=== PATIENT | male | born 1980 | race Caucasian/White ===

== ENCOUNTER 2021-12-14 06:15 | Emergency (ER) | payer BC, OTHER ==
[~2021-12-14] VITALS: Ht 185.4 cm; Wt 106.6 kg
--- NOTE | 2021-12-14 06:20 | NUR ---
DR. DIMAS AT [facility] ASSESSING PATIENT.
[2021-12-14 06:23] VITALS: BP_SYST 143
--- NOTE | 2021-12-14 06:23 | NUR ---
PATIENT RECIEVED 2.5INCH FULL THICKNESS LACERATION, BLEEDING CONTROLLED AT GYM EARLIER THIS AM.
--- NOTE | 2021-12-14 06:25 | NUR ---
PATIENT PLACED INTO BED 2
[2021-12-14] MEDS ORDERED: ACETAMINOPHEN 325 MG TABLET PO ONE (06:30)
[2021-12-14] MEDS ORDERED: LIDOCAINE 1%, 20 ML MDV 20 ML ONE (06:30)
--- NOTE | 2021-12-14 06:35 | NUR ---
DR. DIMAS TO BEDSIDE TO SUTURE WOUND.
--- NOTE | 2021-12-14 06:40 | NUR ---
PATIENT TAKEN TO CT SCAN WITH STICK ROLLER.
--- NOTE | 2021-12-14 06:48 | NUR ---
PATIENT BACK FROM CT SCAN AND AMBULATING TO RESTROOM WITHOUT DIFFICULTY.
--- NOTE | 2021-12-14 07:15 | NUR ---
REPORT GIVEN TO BRIAN LYNN
--- NOTE | 2021-12-14 07:40 | NUR ---
PT recieved from night RN, Pt [id number], pt states head injury is numb from local anesthetic doctor Deion gave. Pt states was at the gym and hit his head with gym equipment. Pt is comfortable bed rails up bed down, friend bedside providing comfort.
[2021-12-14] MEDS ORDERED: DIPH-TET-PERTUS Vaccine 0.5 ML VIAL (ADACEL) I.M. ONE (07:45)
--- NOTE | 2021-12-14 07:45 | NUR ---
Cleansed wound with Normal Saline flush. Pt janice well.
[2021-12-14] MEDS ORDERED: BACITRACIN 1 GM OINT TP ONE (08:05)
--- NOTE | 2021-12-14 08:31 | NUR ---
Patient given written and verbal discharge instructions and verbalizes understanding. ER MD discussed with patient the results and treatment provided. Patient in stable condition. ID arm band removed. Pt educated on wound dressing change and s/s to be alert for when to return to ER. Pt undertood suture removal in 7 days. Opportunity for questions provided and answered. Medication side effect fact sheet provided.
[2021-12-14 08:32] VITALS: BP_SYST 128
== END 2021-12-14 08:31 | disposition home or self-care (01) ==
LOC: SED 06:15
DX: S01.01XA Laceration without foreign body of scalp, initial encounter (principal); W20.8XXA Other cause of strike by thrown, projected or falling object, initial encounter; Y93.89 Activity, other specified; Y92.89 Other specified places as the place of occurrence of the external cause; Y99.8 Other external cause status
CPT/HCPCS: 99284; 70450; 72125; 76376; 90715; 90471; 12002; J2001